=== PATIENT | male | born 1980 | race Caucasian/White ===

== ENCOUNTER 2019-10-15 02:32 | Inpatient (IN) ==
[2019-10-15 03:11] LABS: Basophils # 0.1 10*3/uL (0.0-0.2); Basophils % 0.6 % (0.0-0.8); Eosinophils # 1.2 10*3/uL (0.0-0.87); Eosinophils % 7.7 % (0.00-10.9); Hematocrit 48.5 VOL% (42.0-52.0); Hemoglobin 17.5 GM/DL (14.0-18.0); Immature Granulocytes % 0.6 %; Immature Granulocytes Absolute 0.09 #; Lymphocytes # 6.8 10*3/uL (1.4-4.0); Lymphocytes % 44.3 % (21.2-54.2); Mean Corpuscular HGB Conc 36.1 GM/DL (32-36); Mean Platelet Volume 9.9 FL (9.6-12.0); Monocytes % 8.6 % (1.7-12.7); Neutrophils % 38.2 % (38.7-73.9); Platelet Count 350 T/CUMM (130-400); Red Blood Count 5.33 MC/CUMM (3.8-5.5); Red Cell Distribution Width 12.2 % (9.3-17.3); White Blood Count 15.4 T/CUMM (4-12)
[2019-10-15 03:33] LABS: Alanine Aminotransferase 37 U/L (16-61); Albumin 3.7 G/DL (3.4-5.0); Alkaline Phosphatase 106 U/L (45-117); Aspartate Amino Transferase 25 U/L (0-37); Bilirubin,Total < 0.39 MG/DL (0.2-1.0); Blood Urea Nitrogen 11 MG/DL (7-18); Calcium 9.2 MG/DL (8.5-10.1); Estimated Glom Filtration Rate 106 ML/MIN; Glucose 163 MG/DL (74-106); Osmolality,Calculated 268.4 MOS/KG (273-304); Total Protein 7.6 G/DL (6.4-8.3)
[2019-10-15] MEDS ORDERED: MORPHINE 4 MG/1 ML VIAL IV STA (03:39)
[2019-10-15] MEDS ORDERED: ASPIRIN 325 MG TABLET PO STA (03:39)
[2019-10-15] MEDS ORDERED: NITROGLYCERIN SL 0.4 MG TABLET SL STA ×2 (03:39→04:06)
[2019-10-15] MEDS ORDERED: ONDANSETRON 4 MG/2 ML VIAL IV ONE (03:39)
[2019-10-15] MEDS ORDERED: SODIUM CHLORIDE 0.9% 1,000 ML IV STA (03:41)
[2019-10-15] MEDS ORDERED: ASPIRIN 325 MG TABLET ONE (03:43)
[2019-10-15] MEDS: NITROGLYCERIN SL 0.4 MG TABLET SL PRN ×2 (03:52→04:00)
[2019-10-15] MEDS ORDERED: HEPARIN 1,000 UNIT/1 ML VIAL IV STA (03:54)
[2019-10-15] MEDS ORDERED: TICAGRELOR 90 MG TABLET PO STA (03:54)
[2019-10-15 04:01] LABS: Apearance,Urine CLEAR (Clear); Bilirubin,Urine Negative (Negative); Blood, Urine Negative (Negative); Glucose,Urine (UA) Negative (Negative); Hyaline Casts,Urine 1 /LPF (0-3); Ketones,Urine Negative (Negative); Mucus,Urine Few /LPF (Occasional); Nitrite,Urine Negative (Negative); Protein,Urine Negative; RBC,Urine 1 /HPF (0-4); Squamous Epithelial Cell,Urine Occasional /HPF (0-10); Urine Color Yellow (Yellow); Urine Specific Gravity 1.015 (1.001-1.035); Urine Urobilinogen < 2.0 EU/DL (0.2-1.0); WBC,Urine 6 /HPF (0-6)
[2019-10-15 04:15] LABS: Eosinophils 5 % (0-10); Lymphocytes 34 % (20-55); Platelet Estimate Normal; Segmented Neutrophils 50 % (50-85); Total Cells Counted 100
[2019-10-15 04:16] LABS: Barbiturates Screen,Urine Negative (Negative); Benzodiazepines Screen,Urine Negative (Negative); Cannabinoid Screen,Urine Negative (Negative); Opiate Screen,Urine Negative (Negative); Phencyclidine Screen,Urine Negative (Negative)
[2019-10-15 04:17] LABS: Microcytosis 1+
[2019-10-15 04:19] LABS: Polychromasia Slight
[2019-10-15] MEDS ORDERED: HEPARIN 5,000 UNIT/1 ML VIAL ONE (04:21)
[2019-10-15] MEDS ORDERED: LIDOCAINE 1% 20 ML VIAL ONE (04:21)
[2019-10-15] MEDS ORDERED: MIDAZOLAM 2 MG/2 ML VIAL ONE ×2 (04:21→04:52)
[2019-10-15] MEDS ORDERED: NITROGLYCERIN DRIP 50 MG/250 ML BOTTLE IV ONE (04:21)
[2019-10-15] MEDS ORDERED: HEPARIN/NACL 0.9% 2 UNITS/ML 1,500 ML IV ONE (04:21)
[2019-10-15] MEDS ORDERED: fentaNYL 100 MCG/2 ML VIAL ONE (04:21)
[2019-10-15 05:05] VITALS: BP 116/80
[2019-10-15] MEDS ORDERED: EPTIFIBATIDE 75 MG/100 ML BOTTLE IV ONE ×2 (05:06→05:17)
[2019-10-15] MEDS ORDERED: SODIUM CHLORIDE 0.9% 1,000 ML IV SCH (06:00)
[2019-10-15 07:49] LABS: Alanine Aminotransferase 35 U/L (16-61); Albumin 3.8 G/DL (3.4-5.0); Alkaline Phosphatase 100 U/L (45-117); Aspartate Amino Transferase 26 U/L (0-37); Bilirubin,Direct < 0.100 MG/DL (0.0-0.20); Bilirubin,Indirect 0.5 MG/DL (0.0-1.0); Total Protein 7.6 G/DL (6.4-8.3)
[2019-10-15] MEDS: lisinopriL 20 MG TABLET PO SCH (08:44)
[2019-10-15] MEDS: POTASSIUM CHLORIDE 20 MEQ TABLET PO PRN ×3 (08:44→13:38)
[2019-10-15] MEDS: METOPROLOL SUCCINATE XL 25 MG TABLET PO SCH (08:44)
[2019-10-15] MEDS: ATORVASTATIN 80 MG TABLET PO SCH (08:44)
[2019-10-15] MEDS: TICAGRELOR 90 MG TABLET PO SCH ×2 (08:44→21:30)
[2019-10-15 09:20] LABS: Basophils # 0.1 10*3/uL (0.0-0.2); Basophils % 0.3 % (0.0-0.8); Eosinophils % 0.1 % (0.00-10.9); Hematocrit 45.3 VOL% (42.0-52.0); Hemoglobin 15.5 GM/DL (14.0-18.0); Immature Granulocytes % 0.7 %; Lymphocytes # 2.3 10*3/uL (1.4-4.0); Lymphocytes % 15.5 % (21.2-54.2); Mean Corpuscular HGB Conc 34.2 GM/DL (32-36); Mean Corpuscular Volume 94.4 FL (87-102); Mean Platelet Volume 10.3 FL (9.6-12.0); Neutrophils % 74.4 % (38.7-73.9); Platelet Count 279 T/CUMM (130-400); Red Cell Distribution Width 12.2 % (9.3-17.3); White Blood Count 14.9 T/CUMM (4-12)
[2019-10-15 09:57] LABS: CKMB % 12.9 %
[2019-10-15] MEDS ORDERED: ALUMINUM/MAGNES/SIMETH MAX STR 30 ML UDCUP PO PRN (13:27)
[2019-10-15] MEDS ORDERED: CALCIUM CARBONATE CHEW 500 MG TABLET PO PRN (21:09)
[2019-10-16 04:48] LABS: CKMB % 10.4 %
[2019-10-16 04:54] LABS: Troponin I 76.8 NG/ML (0.00-0.045)
[2019-10-16 06:47] LABS: Calcium 8.9 MG/DL (8.5-10.1); Osmolality,Calculated 263.4 MOS/KG (273-304)
[2019-10-16 07:23] LABS: Basophils % 0.2 % (0.0-0.8); Eosinophils # 0.2 10*3/uL (0.0-0.87); Eosinophils % 1.5 % (0.00-10.9); Hematocrit 48.2 VOL% (42.0-52.0); Hemoglobin 16.2 GM/DL (14.0-18.0); Immature Granulocytes % 0.4 %; Immature Granulocytes Absolute 0.05 #; Lymphocytes # 3.4 10*3/uL (1.4-4.0); Lymphocytes % 26.6 % (21.2-54.2); Mean Corpuscular HGB Conc 33.6 GM/DL (32-36); Mean Platelet Volume 9.8 FL (9.6-12.0); Neutrophils % 61.3 % (38.7-73.9); Platelet Count 252 T/CUMM (130-400); Red Blood Count 4.97 MC/CUMM (3.8-5.5); Red Cell Distribution Width 12.7 % (9.3-17.3); White Blood Count 12.8 T/CUMM (4-12)
[2019-10-16] MEDS: lisinopriL 20 MG TABLET PO SCH (08:50)
[2019-10-16] MEDS: METOPROLOL SUCCINATE XL 25 MG TABLET PO SCH (08:50)
[2019-10-16] MEDS: TICAGRELOR 90 MG TABLET PO SCH (08:50)
[2019-10-16] MEDS: ATORVASTATIN 80 MG TABLET PO SCH (08:50)
[2019-10-16] MEDS ORDERED: ASPIRIN EC 81 MG TABLET PO SCH (09:00)
== END 2019-10-16 14:35 | disposition home or self-care (01) | DRG 247 ==
LOC: N.ED 02:32 → N.ICU 04:28 → N.EDINP 05:18 → N.ICU 05:48
PROVIDERS: ADMIT Internal Medicine Cardiovascular Disease; ATTEND Internal Medicine Cardiovascular Disease
PROC: CLCCHCL (ICD-10-PCS; 2019-10-15 04:45)